=== PATIENT | male | born 1980 | race Caucasian/White ===

== ENCOUNTER 2019-08-05 03:23 | Emergency (ER) | payer SELFPAY ==
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
[2019-08-05 03:23] VITALS: BP 141/81; PULSE 114; RESP 18; TEMP 37.7; O2SAT 97
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
[2019-08-05] MEDS: TETANUS,DIPHTHERIA,AC PERTUSSIS ADULT 0.5 ML (ADACEL) IM (04:00)
--- NOTE | 2019-08-05 04:05 | PC.NURSE ---
pt to xray per wheelchair for ct
--- NOTE | 2019-08-05 04:18 | PC.NURSE ---
pt return from [facility]. spoke with dede anderson deputy.
[2019-08-05 05:03] VITALS: BP 156/92; PULSE 119; RESP 20; TEMP 37.7; O2SAT 98
== END 2019-08-05 05:07 | disposition home or self-care (01) ==
PROVIDERS: Emergency Provider Emergency Medicine
DX: S01.81XA Laceration without foreign body of other part of head, initial encounter (principal); Y04.0XXA Assault by unarmed brawl or fight, initial encounter
CPT/HCPCS: 12011; 70450; 90471; 90715; 99282; 99284